=== PATIENT | female | born 1985 | race Caucasian/White ===

== ENCOUNTER 2017-12-01 12:06 | Outpatient (CLI) | payer BC ==
[2017-12-01 12:57] VITALS: BP 121/60; PULSE 85; RESP 18; TEMP 98
--- NOTE | 2018-01-24 09:43 | P.MSEPDOC ---
Presenting Problems - Arrival Data Date of Arrival on Unit: 12/01/17 Time of Arrival on Unit: 12:06 Mode of Transport: Ambulatory Medical History - Information : 3 Para: 1 Term: 1 : 0 Abortions: Spontaneous or Elective: 1 Number of Living Children: 1 - Gestational Age Gestational Age by PATI (wks/days): 30 Weeks and 1 Days Vital Signs - Temperature Temperature: 98.0 F Temperature Source: Temporal Artery Scan - Pulse Right Pulse Oximetery Pulse Rate: 85 - Respirations Respiratory Rate: 18 Oxygen Delivery Method: Room Air O2 Sat by Pulse Oximetry: 98 - Blood Pressure Right Arm Blood Pressure: 121/60 Blood Pressure Mean: 80 Blood Pressure Source: Automatic Cuff Medical Screen Scoring (Post) - Cervical Exam Dilation: Exam Deferred Effacement: Exam Deferred Membranes: Intact - Uterine Contractions Frequency: N/A Duration: N/A Intensity: N/A - Maternal Vital Signs Maternal Temperature: N/A Maternal Blood Pressure: N/A Signs of Preeclampsia: N/A Maternal Respirations: N/A - Pain Assessment Pain Location and Character: Right, Hip Pain Scale Used: Numeric (1 - 10) Pain Intensity: 4 Pain Management Goal: 2 Pain Description: *Acute, Sore Pain Radiation Location: none Pain Frequency: Constant Pain Duration: 4 Pain Duration Units: Hours Pain Behavior: None Exhibited Pain Aggravating Factors: None Pharmacological Interventions: Discuss Pain Med Options Non-Pharmacological Interventions: Reduce Environmental Stimuli - Maternal Trauma Maternal Trauma: N/A - Assessment Heart Rate: 120 Heart Rate - NICHD Category: Category I (Normal) = 0 NST: Reactive Position: N/A Station: N/A - Total Score Total Score (Post): 0 - Post Treatment Level of Risk Post Treatment Level of Risk: Low (0-5) Physician Notification (Post) - Physician Notified Physician Notified Date: 12/01/17 Physician Notified Time: 12:36 Physician/Practitioner Notified:: Yoav Spoke With: Yoav New Order Received: Yes - Notification Comment Comment: Pt here for a fall to her left side at 0800 am and reported decreased movement, NST reactive. order to discharge with normal follow up appointment. Disposition - Disposition OB Disposition: Discharge to home Discharge Date: 12/01/17 Discharge Time: 12:45 I agree with the RN Medical Screening Exam: Yes Risk & Benefit of care provided described in d/c instruction: Yes Diagnosis: DECREASED MOVEMENTS, UNSP TRIMESTER, UNSP
== END 2017-12-01 12:45 | disposition home or self-care (01) ==
LOC: FBPOP 12:06
PROVIDERS: ATTEND Obstetrics & Gynecology Obstetrics
DX: O36.8130 Decreased fetal movements, third trimester, not applicable or unspecified (principal); Z3A.30 30 weeks gestation of pregnancy
CPT/HCPCS: 59025; 99213

== ENCOUNTER 2018-01-26 01:35 | Inpatient (IN) | payer BC ==
[2018-01-26] MEDS ORDERED: CARBOPROST TROMETHAMINE 250 MCG/ML 1 ML AMP IM PRN (02:19)
[2018-01-26] MEDS ORDERED: OXYTOCIN 10 UNIT/ML 1 ML VIAL IM PRN (02:19)
[2018-01-26] MEDS ORDERED: METHYLERGONOVINE 0.2 MG/ML 1 ML AMP IM PRN (02:19)
[2018-01-26] MEDS ORDERED: TERBUTALINE 1 MG/ML VIAL SQ PRN (02:19)
[2018-01-26] MEDS ORDERED: LIDOCAINE 1% (PF) 10 MG/ML (30 ML SDV) SQ PRN (02:19)
[2018-01-26] MEDS ORDERED: OXYTOCIN 20 UNITS/1000 ML NS 1,000 ML IV SCH ×2 (02:30→11:30)
[2018-01-26 02:50] VITALS: BMI 32.2
[2018-01-26] MEDS: LACTATED RINGERS 1,000 ML IV SCH ×4 (02:51→20:48)
[2018-01-26 02:58] LABS: Basophils % (A) 0 %; Eosinophils % (A) 1 %; HCT 35.6 % (34.0-46.0); HGB 11.7 gm/dL (11.4-16.0); Lymphocytes # (A) 1.6 k/uL (1.0-4.8); Lymphocytes % (A) 26 %; MCHC 32.8 g/dL (31.0-37.0); MCV 79.2 fL (80.0-100.0); Mean Platelet Volume 8.6; Monocytes # (A) 0.4 k/uL (0-1.0); Monocytes % (A) 6 %; Neutrophils # (A) 3.9 k/uL (1.3-7.7); Neutrophils % (A) 65 %; Platelet Count 204 k/uL (150-450); RBC 4.49 m/uL (3.80-5.40); RDW 14.9 % (11.5-15.5)
--- NOTE | 2018-01-26 08:22 | P.HPOB ---
History of Present Illness H&P Date: 01/26/18 Chief Complaint: IUP at 38-1/7 weeks, spontaneous rupture of membranes This is a very pleasant 32-year-old 3 para 1011 at 38-1/7 weeks, estimated date of confinement of 410. Patient presents with spontaneous rupture of membranes around 12:30 last evening. She notes an occasional contraction and good movement On blood work blood type is noted to be A+, rubella immune, hepatitis B surface antigen negative, group beta strep negative, HIV negative, RPR nonreactive. care has been uncomplicated Review of Systems Constitutional: Denies chills, Denies fever Respiratory: Denies cough, Denies dyspnea Gastrointestinal: Denies constipation, Denies diarrhea Genitourinary: Reports Past Medical History Past Medical History: No Reported History History of Any Multi-Drug Resistant Organisms: None Reported Past Surgical History: Adenoidectomy, Appendectomy, Tonsillectomy Past Anesthesia/Blood Transfusion Reactions: No Reported Reaction Past Psychological History: ADD/ADHD, Anxiety Smoking Status: Never smoker Past Alcohol Use History: None Reported Past Drug Use History: None Reported - Past Family History Mother Family Medical History: No Reported History Father History Unknown: Yes Family Medical History: AFIB, Hypertension Medications and Allergies Home Medications Medication Instructions Recorded Confirmed Type Iiv-Nmbc-Cbabt Acid 1 each PO DAILY 09/18/14 01/26/18 History [-U Capsule] Allergies Allergy/AdvReac Type Severity Reaction Status Date / Time No Known Allergies Allergy Verified 01/26/18 01:49 Exam Osteopathic Statement: *. No significant issues noted on an osteopathic structural exam other than those noted in the History and Physical/Consult. - Vital Signs Vital signs: Vital Signs Temp Pulse Resp BP 01/26/18 01:49 96.9 F L 91 18 129/61 Intake and Output 01/25/18 01/26/18 01/26/18 22:59 06:59 14:59 Other: # Voids 3 Weight 93.44 kg Results Result Diagrams: 01/26/18 02:40 Abnormal Lab Results - Last 24 Hours (Table) 01/26/18 Range/Units 02:40 MCV 79.2 L (80.0-100.0) fL Assessment and Plan (1) Term Current Visit: Yes Status: Acute Code(s): Z34.80 - ENCOUNTER FOR SUPRVSN OF NORMAL , UNSP TRIMESTER SNOMED Code(s): 41730242 (2) Spontaneous rupture of membranes Current Visit: No Status: Acute Code(s): SOD8166 - SNOMED Code(s): 638762879 Plan: Will plan Pitocin augmentation of labor, anticipate spontaneous vaginal delivery later this afternoon. All questions were answered with the patient in the patient's they are agreeable to this plan and we will proceed Time with Patient: Less than 30
[2018-01-26] MEDS ORDERED: BUPIVACAINE (PF) 0.25% 30 ML VIAL ONE (09:11)
[2018-01-26] MEDS ORDERED: fentaNYL (PF) 50 MCG/ML 5 ML AMP ONE (09:11)
[2018-01-26] MEDS ORDERED: SODIUM CHLORIDE 0.9% 100 ML BAG ONE (09:11)
[2018-01-26] MEDS ORDERED: BUPIVACAINE (PF) 0.25% 25 ML, fentaNYL (PF) 200 MCG in SODIUM CHLORIDE 0.9% 71 ML EPIDURAL ONE (09:34)
[2018-01-26] MEDS ORDERED: LANOLIN CREAM 5 GM TUBE TOPICAL PRN (11:16)
[2018-01-26] MEDS ORDERED: WITCH HAZEL 1 EACH MED..PAD TOPICAL PRN (11:16)
[2018-01-26] MEDS ORDERED: BENZOCAINE/MENTHOL SPRAY 1 GM/SPRAY AEROSOL TOPICAL PRN (11:16)
[2018-01-26] MEDS ORDERED: diphenhydrAMINE 50 MG CAP PO PRN (11:16)
[2018-01-26] MEDS ORDERED: diphenhydrAMINE 25 MG CAP PO PRN (11:16)
[2018-01-26] MEDS ORDERED: diphenhydrAMINE 50 MG/ML 1 ML VIAL IVP PRN ×2 (11:16)
[2018-01-26] MEDS ORDERED: SIMETHICONE 80 MG CHEWABLE PO PRN (11:16)
[2018-01-26] MEDS ORDERED: ZOLPIDEM 5 MG TAB PO PRN (11:16)
[2018-01-26] MEDS ORDERED: HYDROCORTISONE 2.5% RECTAL CREAM 30 GM TUBE RECTAL PRN (11:16)
--- NOTE | 2018-01-26 11:20 | P.PROBDLV ---
Vaginal Delivery Note - . Vaginal Delivery Note: This is a very pleasant 32-year-old 3 para 1011 at 38-1/7 weeks that presented with complaints of rupture of membranes around 12:30 last evening. Patient made minimal progress throughout the evening and this morning was noted to be 5 cm, Pitocin augmentation of labor was begun patient progressed to complete noting rectal pressure. Patient started pushing and the head was delivered gently in an occiput anterior position downward traction delivered the anterior shoulder followed by upward traction, the posterior shoulder was delivered infant was then placed gently on the mom's abdomen and delayed cord clamp was then done, the cord was then doubly clamped and cut. The placenta was then delivered intact with three- vessel cord being noted. Afterwards inspection of the patient's vaginal vault revealed a second-degree midline laceration through her prior laceration, this was repaired in the usual fashion with 3-0 repeat. On inspection afterwards normal reapproximation was noted, rectal exam was done in normal in nature. Mom and infant tolerated delivery well and are resting comfortably Estimated blood loss was noted to be partially 200 mL, infant girl was delivered at 1104, Apgars of 9 and 9 at one and 5 minutes respectively, weight of 7 pounds 4.6 ounces
[2018-01-26] MEDS: IBUPROFEN 600 MG TAB PO PRN ×2 (13:59→20:22)
--- NOTE | 2018-01-26 14:58 | P.MSEPDOC ---
Presenting Problems - Arrival Data Date of Arrival on Unit: 01/26/18 Time of Arrival on Unit: 02:15 Mode of Transport: Wheelchair - Complaint OB-Reason for Admission/Chief Complaint: Rule Out SROM Comment: SROM @ 0030 Medical History - Information : 3 Para: 1 Term: 1 : 0 Abortions: Spontaneous or Elective: 1 Number of Living Children: 1 - Gestational Age Gestational Age by PATI (wks/days): 38 Weeks and 1 Days Review of Systems - Review of Systems Constitutional: No problems Breast: No problems ENT: No problems Cardiovascular: No problems Respiratory: No problems Gastrointestinal: No problems Genitourinary: No problems Musculoskeletal: No problems Neurological: No problems Skin: No problems Vital Signs - Temperature Temperature: 98.4 F Temperature Source: Temporal Artery Scan - Pulse Right Brachial Pulse Rate: 77 Pulse Assessment Method: Automatic Cuff - Respirations Respiratory Rate: 16 Oxygen Delivery Method: Room Air - Blood Pressure Right Arm Blood Pressure: 112/62 Blood Pressure Mean: 78 Blood Pressure Source: Automatic Cuff Medical Screen Scoring (Pre) - Cervical Exam Dilation: 4-7 cm = 2 Effacement: More than 50% = 2 Membranes: Intact - Uterine Contractions Frequency: > 5 minutes apart = 1 Duration: > 40 seconds = 2 Intensity: N/A - Maternal Vital Signs Maternal Temperature: N/A Maternal Blood Pressure: N/A Signs of Preeclampsia: N/A Maternal Respirations: N/A - Pain Assessment Pain Scale Used: Numeric (1 - 10) Pain Intensity: 0 - Maternal Trauma Maternal Trauma: N/A - Assessment Baseline FHR: 120 Heart Rate - NICHD Category: Category I (Normal) = 0 NST: Reactive Position: N/A - Total Score Total Score (Pre): 7 - Level of Risk Level of Risk: Medium (6-9) Physician Notification (Pre) - Physician Notified Physician Notified Date: 01/26/18 Physician Notified Time: 02:15 Physician/Practitioner Notifed:: Dr. Elizabeth Spoke With: Dr. Elizabeth New Order Received: Yes - Notification Comment Comment: admit for labor Disposition - Disposition OB Disposition: Admit, LDRP Suite I agree with the RN Medical Screening Exam: Yes Risk & Benefit of care provided described in d/c instruction: Yes Diagnosis: FULL-TERM VANESSA ROM, ONSET LABOR WITHIN 24 HOURS OF RUPTURE
[2018-01-26] MEDS: SENNOSIDES-DOCUSATE SODIUM 1 EACH TAB PO SCH (20:22)
[2018-01-27] MEDS: IBUPROFEN 600 MG TAB PO PRN ×2 (02:54→12:27)
[2018-01-27] MEDS: ACETAMINOPHEN TAB 325 MG TAB PO PRN ×2 (04:12→08:27)
[2018-01-27] MEDS: SENNOSIDES-DOCUSATE SODIUM 1 EACH TAB PO SCH (07:53)
--- NOTE | 2018-01-27 08:27 | P.DS ---
Providers Date of admission: 01/26/18 02:19 Expected date of discharge: 01/27/18 Attending physician: Carmelina Cason Primary care physician: Carmelina Cason - Discharge Diagnosis(es) (1) Term Current Visit: Yes Status: Acute (2) Spontaneous rupture of membranes Current Visit: No Status: Acute Hospital Course: This is a 32-year-old 3 para 1011 at 38-1/7 weeks that presented on 328 with complaints of rupture of membranes) 12:30 the evening. Patient made minimal progress throughout that evening in the morning was noted to be 5 cm Pitocin augmentation was begun and she progressed to complete and had a normal spontaneous vaginal delivery of a viable female infant at 11:04 weight of 7 pounds 4.6 ounces Apgars of 9 and 9 at one and 5 minutes respectively. Next Patient's course has been uneventful. She is ambulating and voiding without difficulty she states her lochia is minimal, she is stating her pain is controlled with oral Motrin. She desires discharge home. Patient Condition at Discharge: Good Plan - Discharge Summary New Discharge Prescriptions: No Action Ojq-Kfep-Xdqeg Acid [-U Capsule] 1 each PO DAILY Discharge Medication List Lce-Ijyz-Gpmui Acid [-U Capsule] 1 each PO DAILY 09/18/14 [ History] Follow up Appointment(s)/Referral(s): Carmelina Cason DO [Primary Care Provider] - 4 Weeks Patient Instructions/Handouts: Vaginal Delivery (DC)
[2018-01-27] MEDS ORDERED: PRENATAL VIT-IRON-FOLIC ACID 1 EACH CAP PO SCH (09:00)
[2018-01-27 09:59] VITALS: BP 98/63; PULSE 78; RESP 18; TEMP 97.9
== END 2018-01-27 16:00 | disposition home or self-care (01) | DRG 775 ==
LOC: FBPOP 01:35 → 4FBP 02:19
PROVIDERS: ADMIT Obstetrics & Gynecology; ATTEND Obstetrics & Gynecology Obstetrics
PROC: 10E0XZZ Delivery of Products of Conception, External Approach (ICD-10-PCS; principal; 2018-01-26)
PROC: 0KQM0ZZ Repair Perineum Muscle, Open Approach (ICD-10-PCS; 2018-01-26)
PROC: 00HU33Z Insertion of Infusion Device into Spinal Canal, Percutaneous Approach (ICD-10-PCS; 2018-01-26)
PROC: 3E0R3NZ Introduction of Analgesics, Hypnotics, Sedatives into Spinal Canal, Percutaneous Approach (ICD-10-PCS; 2018-01-26)
DX: O42.02 Full-term premature rupture of membranes, onset of labor within 24 hours of rupture (principal); O70.1 Second degree perineal laceration during delivery; Z37.0 Single live birth; Z3A.38 38 weeks gestation of pregnancy; Z90.89 Acquired absence of other organs; Z86.59 Personal history of other mental and behavioral disorders; Z82.49 Family history of ischemic heart disease and other diseases of the circulatory system
CPT/HCPCS: 59025; 84112; 85025; 88307; 99213

== ENCOUNTER → 2020-09-06 | Outpatient (CLI) | payer BC ==
--- NOTE | 2020-09-06 09:58 | USB ---
Reason for exam: clinical finding. History: Family history of breast cancer in maternal grandmother at age 80. Indicated problem(s): palpable abnormality and pain in the right breast. Physical Findings: Nurse Summary: Patient complains of pain right axilla and lateral half, constant x 1 month, states she feels a lump, BB placed as patient's palpables, soft, movable, nodular (nurse TM). US Breast RT Right complete breast ultrasound includes all four quadrants, the retroareolar region and axilla. Finding demonstrates no cystic or solid lesion seen. These results were verbally communicated with the patient and result sheet given to the patient on 09/06/20. ASSESSMENT: Negative, BI-RAD 1 RECOMMENDATION: Routine screening mammogram of both breasts at age 37. Manage patient on a clinical basis.
== END | disposition home or self-care (01) ==
LOC: RADUSWWP 06:59
PROVIDERS: ATTEND Obstetrics & Gynecology Obstetrics
DX: N64.4 Mastodynia (principal); N63.10 Unspecified lump in the right breast, unspecified quadrant

== ENCOUNTER 2024-03-06 13:17 | Emergency (ER) | payer OTHER, BC ==
[2024-03-06 13:37] VITALS: RESP 18
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
[2024-03-06 14:30] VITALS: BP 132/80; PULSE 90; TEMP 98.1
== END 2024-03-06 16:23 | disposition home or self-care (01) ==
LOC: EC 13:17
DX: S51.852A Open bite of left forearm, initial encounter (principal); Y04.1XXA Assault by human bite, initial encounter
CPT/HCPCS: 99283